=== PATIENT | female | born 1935 | race Caucasian/White ===

== ENCOUNTER → 2019-04-13 11:48 | Outpatient (CLI) | payer OTHER, SELFPAY ==
--- NOTE | 2019-04-13 12:34 | DI.CT.S_ITS ---
PROCEDURE: CT ABDOMEN PELVIS W CON INDICATIONS: LEFT SIDED ABDOMINAL PAIN TECHNIQUE: After the administration of oral and intravenous contrast, 5 mm thick sections acquired from the diaphragms to the symphysis. 5 mm thick coronal and sagittal reformats were performed. For radiation dose reduction, the following was used: automated exposure control, adjustment of mA and/or kV according to patient size. COMPARISON: None. FINDINGS: Image quality: Excellent. ABDOMEN: Lung bases: 13 mm subpleural nodule within the right lower lobe posteriorly. Lung bases are otherwise clear. Heart size is normal. Solid organs: Liver is normal in size and enhancement. Gallbladder demonstrates multiple calculi within its lumen. Biliary system is non-dilated. Pancreas enhances normally. Spleen is normal in size and enhancement. No adrenal nodules. Kidneys are normal in size and enhancement, without hydronephrosis. Left parapelvic renal cysts are present. Peritoneum and bowel: Stomach, small bowel, and colon loops are normal in caliber and wall thickness. Diverticulosis of the sigmoid colon is present. No evidence of acute diverticulitis. Appendix not seen. No evidence of appendicitis. No free fluid or air. Nodes and vessels: No retroperitoneal or mesenteric adenopathy. Aorta and inferior vena cava are normal in caliber. There is a peripherally calcified 8mm focus at the splenic hilum. Miscellaneous: No ventral hernias. PELVIS: Genitourinary: Bladder wall thickness is normal. Miscellaneous: No inguinal hernias or adenopathy. Bones: No suspicious bony lesions. No vertebral body compression fractures. IMPRESSION: 1. Cholelithiasis. 2. Splenic artery aneurysm. 3. Right lung base nodule; followup is recommended as below. 4. Appendix not seen. No evidence of appendicitis. Fleischner Society criteria for SOLID lung nodule followup. Nodule size (mm)Low-risk patientHigh-risk patient<6 (single or multiple)No routine followup.Optional CT at 12 months. 6-8 (single or multiple)CT at 6-[address] at 18-24 mo.CT at 6-12 months, then CT at 18-24 months. >8 (single)CT, PET-CT, or biopsy at 3 months. Same as for low-risk pts. >8 (multiple)CT at 3-6 months, then optional CT at 18-24 mo.CT at 3-6 months, then CT at 18-24 months. Recommendations do not apply to lung cancer screening, patients with immunosuppression, or patients with known primary cancer. Dictated by: Christopher Coleman M.D. on 04/13/2019 at 13:33 Approved by: Christopher Coleman M.D. on 04/13/2019 at 13:36
== END ==
PROVIDERS: PCP Family Medicine; Visit Provider Family Medicine
DX: R10.9 Unspecified abdominal pain (principal); K80.20 Calculus of gallbladder without cholecystitis without obstruction; I72.8 Aneurysm of other specified arteries; R91.1 Solitary pulmonary nodule; N28.1 Cyst of kidney, acquired
CPT/HCPCS: 74177; Q9967

== ENCOUNTER → 2019-05-04 12:22 | Outpatient (CLI) | payer OTHER, SELFPAY | PROVIDERS: PCP Family Medicine; Visit Provider Family Medicine | DX: M85.851 Other specified disorders of bone density and structure, right thigh (principal); Z78.0 Asymptomatic menopausal state; Z85.3 Personal history of malignant neoplasm of breast | CPT/HCPCS: 77080 ==

== ENCOUNTER 2019-05-19 12:16 | Observation (INO) | payer OTHER, SELFPAY ==
[2019-05-06 12:11] VITALS: BMI 24.7
[2019-05-19] VITALS (17 sets, daily range): BP systolic 84–162; BP diastolic 52–92; PULSE 43–103; RESP 12–22; TEMP 33–37.1; O2SAT 93–99; BMI 23.8
--- NOTE | 2019-05-19 | DI.RAD.S_ITS ---
PROCEDURE: XR CHOLANGIOGRAM OPERATIVE INDICATIONS: LAP LORETTA COMPARISON: [facility], CT, CT ABDOMEN PELVIS W CON, 04/13/2019, 12:40. FINDINGS: Biliary ducts: The surgeon injected contrast into the biliary ducts after cannulation of the cystic duct stump. Visualized intra- and extrahepatic bile ducts are normal in caliber, without strictures. No intraluminal filling defects to suggest retained ductal stones or sludge. No evidence for iatrogenic ductal injury. Duodenum: Contrast flows promptly through the sphincter of Oddi into the duodenum, which appears normal in caliber. IMPRESSION: Normal operative cholangiogram. Dictated by: Noam ENCINAS Interpreted: Derrick Wilson MD on 05/19/2019 at 17:07 Approved by: Derrick Wilson M.D. on 05/20/2019 at 9:03
--- NOTE | 2019-05-19 | PATH_ITS ---
[facility] Accession Number: [id number] . 01 Material submitted: . gallbladder - GALLBLADDER . 02 Diagnosis: Gallbladder: Cholelithiasis with associated mild chronic cholecystitis. MRV/05/23/2019 . 02 Electronically signed: . Ji Rob MD, Pathologist NPI- [id number] . 01 Gross description: . Received in formalin, labeled with the patient's name and gallbladder, is a 7.5 x 3.4 x 3.3 cm intact green-brown gallbladder. The serosa is smooth with a roughened liver bed surface. Opening the specimen reveals a normal appearing wall, 0.2 cm in average thickness. The mucosa is green-brown and velvety and green-brown bile is present. Approximately 15 smooth black gallstones are present ranging from 0.4 to 0.9 cm in greatest dimension. On gallstone is lodged within the cystic duct. Hybrid Car Mechanic sections of gallbladder neck, body and fundus, and cystic duct margin are submitted in one cassette. (JULEE:[id number]) /MRV . 02 Pathologist provided ICD-10: K80.64 . 02 CPT . 595654 Performed at: 01 [facility] [address] [facility], [place], [place] [id number] MD Rojelio Senior MD Phone: [phone] Performed at: 02 [facility] [address] [place], [place] [id number] MD Alyse Williamson MD Phone: [phone]
[2019-05-19] MEDS: LACTATED RINGERS 1,000 ML 42 ML IV (12:58)
--- NOTE | 2019-05-19 14:08 | PM.PREOP ---
Pre-operative Note Interval Note History & Physical reviewed/Exam performed by Physician: Yes Changes to H&P: No H&P completed within 30 days and has changed as indicated here:: Please see note from 05/02 for H&P
--- NOTE | 2019-05-19 14:13 | PM.OP.1 ---
Operative Date/Time/Diagnoses Date of procedure: 05/19/19 Time of procedure: 14:00 Pre-op diagnosis: Hodgkin's lymphoma Post-op diagnosis: same Procedure & Clinicians Procedure: Attempt at Port-A-Cath placement. Unable to place due to large obstructing mass in the chest most likely lymphoma involved lymph nodes Same procedure as scheduled: Yes Indications: Need for IV access for chemotherapy Surgeon: Raffi Castillo Click Yes if Unassisted: Yes Anesthesia Type: General Operative Notes Findings: Unable to pass catheter and aspirate it and use it as a functional central line access point Closure Type: primary Specimen(s): none sent Prosthetic devices, grafts, tissues, transplants, or devices: None Estimated Blood Loss (mL): 20 Procedure in detail: The patient was placed supine on the operating room table and underwent general LMA anesthesia. Roll was placed between his shoulders and he was prepped and draped in the usual fashion. Has a large amount of lymphadenopathy burden in the left neck and axilla presumptively extending along the thoracic outlet as well so the right side was chosen for access. Small incision was made paralleling the clavicle and carried down in the subcu. Needle was inserted on 1st attempt into the subclavian vein after placing the patient in Trendelenburg. A guidewire was passed needle removed. The guidewire clearly went into the area of the superior vena cava but would not pass beyond. I created a pocket inferior to the incision and tapered my catheter to appropriate length. I then inserted the dilator and introducer over the guidewire under fluoroscopic visualization. A reached a point where there was resistance in the upper 3rd of the superior vena cava and I did not push beyond this point. I removed the dilator and left the introducer in place. The catheter was passed but it would only go so far. It appeared there was a kink in the introducer. I began to peel the introducer way while of observing under fluoroscopy and attempting to push the catheter into the introducer. However both the catheter in introducer appeared to be backing out and I was not able to pass the catheter. I stopped before I was out of the vein. I removed the catheter and reinserted the dilator under fluoroscopy and straightened out the introducer. I ten passed the guidewire through the dilator and removed the dilator leaving the guidewire in place. I was able to pass it to the same level as my initial insertion of the guidewire.
[2019-05-19] MEDS: CEFAZOLIN 2 GM/100 ML FROZ.PIGGY IV (14:34)
--- NOTE | 2019-05-19 14:58 | SUR.OPER ---
Supine on padded OR bed, head on pillow, safety belt at thigh, left arm padded and tucked at side. Right arm secured on padded arm oard <90 degrees abduction. Legs uncrossed. Padded footboard in place. Tape over blanket to secure lower legs.
[2019-05-19] MEDS: BUPIVACAINE 0.5% (PF) VIAL 30 ML INJ (15:10)
[2019-05-19] MEDS: IOPAMIDOL 50 ML VIAL INJ (15:11)
[2019-05-19] MEDS: RACEPINEPHRINE 0.5 ML NEB INH (16:20)
--- NOTE | 2019-05-19 16:21 | SUR.PHASEI ---
PT HAVING INSPIRATORY STRIDER, LUNG SOUNDS WITH GOOD AIR EXCHANGE HEARD, OCC WHEESING NOTED IN RIGHT UPPER LOBE, DR RICK REMAINS AT BEDSIDE, RESP TX BEING GIVEN
--- NOTE | 2019-05-19 16:26 | P.OP_ITS ---
Operative Date/Time/Diagnoses Date of procedure: 05/19/19 Time of procedure: 16:02 Pre-op diagnosis: Cholelithiasis chronic cholecystitis Post-op diagnosis: same (Stones within the cystic duct) Procedure & Clinicians Procedure: Laparoscopic cholecystectomy with intraoperative cholangiogram Same procedure as scheduled: Yes Indications: Symptomatic gallbladder disease Surgeon: Raffi Castillo Click Yes if Unassisted: Yes Anesthesia Type: General Operative Notes Findings: Gallbladder with stones. Three small stones in the cystic duct. Normal cholangiogram. Closure Type: primary Specimen(s): other (Gallbladder) Prosthetic devices, grafts, tissues, transplants, or devices: None Estimated Blood Loss (mL): 5 Blood products transfused: none Procedure in detail: The patient was placed supine on the operating room table and underwent general endotracheal anesthesia. The patient was prepped and draped in the usual fashion. Local anesthetic was infiltrated near the umbilicus and curvilinear incision made and carried down through fascia into the peritoneal cavity. Stay sutures of 0 Vicryl were placed in the fascia. A 12 mm port was placed. The abdomen was insufflated. The patient was repositioned. Local anesthetic was infiltrated in 3 areas under the right costal margin and 3 small incisions made followed by placing 3 5 mm ports under direct laparoscopic camera vision internally. The gallbladder was grasped and elevated. Dissection was begun near its end. The tissues were opened at the into the gallbladder using blunt dissection. There were 3 structures dissected out 1 of which a ppeared to be the duct. As there was very little intraperitoneal fat it was easy to see the juncture with the common bile duct which looked generous in size. The cystic duct also was generous in size. I decided to perform a cholangiogram. A clip was placed at the junction of the duct and gallbladder and a small machelle was intentionally made in the cystic duct. I milked fluid from the common duct and cystic duct back through this opening and 3 very small black stones egress from the cystic duct. A cholangiogram catheter was inserted and a cholangiogram performed that showed no filling defects and a normal duct with free flow into the duodenum. The cholangiocatheter was removed and 3 clips were placed on the cystic duct and it was divided leaving those 3 the patient. The other structures which I felt were vascular had 3 clips placed across them and they were divided leaving 2 in the patient on each structure.. The gallbladder was then dissected from its bed in the liver using cautery. Meticulous with hemostasis was achieved as the dissection progressed. It was detached and removed through the umbilical port. the right upper quadrant irrigated suctioned free of fluid. There was no ongoing bleeding. There was no leakage of bile. The ports were all removed. The port sites were all irrigated. The stay sutures at the umbilicus were elevated. A 2 0 PDS suture was placed between them. The Vicryl and PDS sutures were then tied. The skin in all areas was closed with interrupted 4 0 Vicryl subcuticular stitches. Steri-Strips and Mastisol were applied. Band-Aids were placed and the patient was awakened, extubated and taken to the recovery area in good condition. Complications: none Condition: stable Disposition: PACU Plan for aftercare: Initially I would plan to send the patient home but she developed stridor that appeared to be centered in her upper respiratory tract. With the liver endoscope it was noted that the cord structures moved normally but there was some edema in the supraglottic area. There was some mild asymmetry of the arytenoids. Because of this in the stridor and relative hypoxia on supplemental oxygen I decided to keep this 84-year-old overnight for observation in the ICU. The patient received a breathing treatment with the albuterol, racemic epinephrine, and also received 25 mg of Benadryl IV. There was some improvement in her respiratory status but I had decided better safety and sorry and keep her overnight. This was discussed with her son who was in agreement, and the patient.
[2019-05-19] MEDS: diphenhydrAMINE 50 MG/ML VIAL 25 MG IV (16:30)
--- NOTE | 2019-05-19 16:37 | SUR.PHASEI ---
PT CONTINUED TO HAVE INSPIRATORY STRIDER, ANESTHESIA AT BEDSIDE, RESP THERAPY CALLED TO BEDSIDE, DR RICK MEDICATED PT AND EXAMINED PTS THROAT AND VOCAL CORDS BY SCOPE. DR GIRON IS TO SEE PT AND AWARE. WILL CONTINUE TO OBSERVE AND MONITOR, WILL ADMIT PT TO ICU.
--- NOTE | 2019-05-19 16:50 | SUR.PHASEI ---
PT RESTING QUIETLY, LUNG SOUNDS CLEAR, NO STRIDER NOTED, ON 2LNC PULSE OX IS 98, RR 14-18
--- NOTE | 2019-05-19 17:11 | SUR.PHASEI ---
PT TO ICU, HAND OFF OF CARE AND REPORT TO PARRISH COBB, IV PATENT, ABDOMINAL DRESSINGS REMAIN DRY AND INTACT, PT DENIES ANY PAIN OR NAUSEA.
--- NOTE | 2019-05-19 18:04 | PC.NURSE ---
2746 - Patient brought to room 102 from PACU. Transferred from stretcher to bed. Alert and oriented, but sleepy. Denies pain at this time. Denies difficulty breathing. No stridor noted at this time, but patient's voice is hoarse when speaking. Oriented to room and call light, call light within reach. Continuous pulse ox on.
[2019-05-19] MEDS: GABAPENTIN 300 MG CAPSULE PO (20:29)
[2019-05-19] MEDS: ALBUTEROL 2.5 MG/3 ML NEB (ADULT) INH (20:29)
[2019-05-19] MEDS: ENOXAPARIN 40 MG/0.4 ML SYRINGE SUBCUT (21:29)
[2019-05-20 00:13] VITALS: BP 120/54; PULSE 57; RESP 16; TEMP 36.9; O2SAT 97
[2019-05-20] MEDS: LACTATED RINGERS 1,000 ML 80 ML IV (01:22)
[2019-05-20] MEDS: GABAPENTIN 300 MG CAPSULE PO (09:08)
[2019-05-20] MEDS: hydroCHLOROthiazide 25 MG TABLET PO (09:08)
[2019-05-20] MEDS: HYDROCODONE/ACET 5/325 TABLET 1 TAB PO ×2 (09:38→12:55)
--- NOTE | 2019-05-20 12:22 | CM.DANOTE ---
Discharge Planning/Care Management DCP: assessment: case received, discussed in Team Rounds and d/c to home order noted now from Dr. Castillo. Met with pt and then with her son when he arrived. Introduced self and role. Pt is an 84 year old female who admitted yesterday for a scheduled Lap Priyanka. She developed some problems post op an so was observed overnight in ICU setting. Pt is found sitting up, eating lunch and she says she is feeling good and ready for the d/c today. She lives on [place] with family, her son Harinder is here to take her home. Assisted RN Aamir to complete the priority board pass [place] the [address] [place]. BARB Santiago at main nurses station/acute care floor is faxing this form now. Pt copy is given to Harinder. P: home today as stated. CM Discharge Assessment Start: 05/20/19 12:21 Freq: Status: Active Protocol: Document 05/20/19 12:21 ITV (Rec: 05/20/19 12:22 ITV [id number]) Discharge Planning Assessment Advance Directives? No History Provided By Patient Family Member Medical Record Household Members family children Review Status In Process Pre-Anesthesia Assessment Start: 05/06/19 12:11 Freq: Status: Complete Protocol: Document 05/06/19 12:11 CAB (Rec: 05/06/19 12:32 CAB [id number]) Pre-Anesthesia Assessment Patient Information Reviewed Via Chart Review Primary Care Provider Jhon Capps Seen Specialist in Last 12 Months Yes Specialist Seen General surgeon Primary Language Taiwanese Grab Jack Man Required No Height 166.37 cm Weight 68.492 kg Body Mass Index (BMI) 24.7 Hearing Ability Normal Visual Assist Glasses Dentition Type Teeth, Natural Present Barriers to Learning None Hx Anesthesia Reactions No Hx Family Anesthesia Reaction No Hx Malignant Hyperthermia No Hx Blood Transfusions No Anesthesia Review Requested No Gravity Meter Observer No alcohol intake never Smoking Status Former smoker how long ago did patient quit smoking Quit 1959' Substance Use Type does not use Pain Present Pain Reported Patient is completely paralyzed or No completely immobile Mental Status Oriented to own ability Is patient on oxygen? No Does patient have LY/SOB No Hx Sleep Apnea No Currently Taking a Beta Raul No Hx Chest Pain No Hx SOB No Hx Syncope or Dizziness No Anti-Coagulant Therapy No Has a Ethnographic Materials Conservator No Cardiac Testing No Hx Pacemaker/ICD No Pacemaker Rep Required? No Cardiac Clearance Received Not Applicable dysphagia No Urinary Catheter Present No Hx Urinary Self Catheterization No Diabetes No Patient No Lactating No Comment Lives With family children Patient Discharge Plan Description Return Home
--- NOTE | 2019-05-20 13:11 | CM.DANOTE ---
Discharged in WC, awake, alert, oriented. Prescribed medication given for ongoing abdominal soreness. VSS. All personal effects with pt. Discussed discharge instructions and medications.
--- NOTE | 2019-05-20 17:09 | PM.DS.1 ---
History of Present Illness Date Patient Seen: 05/20/19 Time Patient Seen: 09:00 Chief complaint: [id number] LAP LORETTA Narrative: The patient is a woman who was brought in for observation due to postoperative stridor and hypoxia. She had undergone a laparoscopic cholecystectomy with intraoperative cholangiogram which was uncomplicated. In the recovery room she develop stridor and had visualization of her cord structures. There was some edema above the cords and it was decided to keep her in for observation overnight. Discharge Providers Date of admission: 05/19/19 12:16 Discharge Date: 05/20/19 Primary care physician: Jhon Capps Consults: 05/19/19 17:27 Consult to Discharge Planning Routine Comment: 05/19/19 18:03 Consult to Pastoral Services Routine Comment: roman catholic Discharge provider: Raffi Castillo MD Summary Discharge Diagnosis: Chronic cholecystitis with cholelithiasis. 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 Hospital Course: The patient had a laparoscopic cholecystectomy and intraoperative cholangiogram. Her stridor with hypoxia in the recovery room resulted in her being kept for observation. In the recovery room she received abuse her all nebulizer treatment,racemic epinephrine treatment, and IV Benadryl. The patient lives on [facility] and does not have ready access to emergency medical care. Over the night her condition improved. She had wheezing also in the recovery room the persisted but this disappeared over night along with the stridor and hypoxia. Status at Discharge Cognitive/behavioral status at discharge: oriented Functional status at discharge: independent ambulation Overall status at discharge: patient is progressing back to baseline Exam Vital Signs (past 8 hours): Oxygen Delivery Method Room Air Oxygen Flow Rate 2 Narrative Exam Narrative: Operative no apparent distress. Lungs are clear to auscultation without wheezing rales or rhonchi. No stridor. Oxygenating well on room air. Abdomen is soft nontender without masses. Her dressings are intact and dry without bleeding. Objective Labs Labs: Laboratory Results - last 24 hr 05/19/19 18:15 Nasal Screen MRSA (PCR) Negative for mrsa Discharge Plan Discharge Plan Patient Disposition: Home Discharge comment: Your operation went well. You may remove the Band-Aids tomorrow and shower. No lifting or straining for about 4 weeks. Discharge Med Rec/Prescriptions Prescriptions: New hydrocodone-acetaminophen [[place]] 5-325 mg tablet 1 tab PO Q4H PRN (Reason: painful procedure) Qty: 14 RF: 0 Continued atorvastatin [Lipitor] 20 mg tablet 20 mg PO DAILY RF: 0 hydrochlorothiazide 25 mg tablet 25 mg PO DAILY RF: 0 ibuprofen [Advil] 200 mg Tablet 200 mg PO QID PRN (Reason: Pain) RF: 0 albuterol sulfate 90 mcg/actuation Hfa Aerosol Inhaler 1 puff INHALATION Q4-6H PRN (Reason: Sinus Symptoms) RF: 0 coenzyme Q10 [CoQ-10] 30 mg Capsule 30 mg PO DAILY RF: 0 Follow up/Referrals: Jhon Capps [Primary Care Provider] - Raffi Castillo MD [Physician] - As previously scheduled (If you need to reach a doctor after hours call our office and hold through the entire message. At the end you will be connected with our page pharmaceutical plant operator) Provider Discharge Instructions Diet: Diet as Tolerated Activity: Do not drive or operate machinery while taking narcotics for pain or while in pain. Skin/Wound/Dressing Care Report to your healthcare provider any signs of infection, such as:: increased pain, unusual drainage and unusual redness Dressing: Removed Band-Aids in 1 day and shower. Leave white tape under the Band-Aids fall off on its own. Do not put under water for at least 2 weeks. Water can run over the incisions however. Visit Report/Discharge Packet Instructions: DI for Cholecystectomy, DI for Laparoscopy, [facility]: Wound Care Stand Alone Forms: Surgery Discharge Discharge Data Primary Care Provider: Jhon Capps Attending Provider: Raffi Castillo Admit Date/Time: 05/19/19 12:16 Discharges patient from system. Discharge Date/Time: 05/20/19 13:15 Quality VTE Deep Vein Thrombosis/Pulmonary Embolism Present on Admission: No
--- NOTE | 2019-05-20 17:16 | P.DS_ITS ---
History of Present Illness Date Patient Seen: 05/20/19 Time Patient Seen: 09:00 Chief complaint: [id number] LAP LORETTA Narrative: The patient is a woman who was brought in for observation due to postoperative stridor and hypoxia. She had undergone a laparoscopic cholecystectomy with intraoperative cholangiogram which was uncomplicated. In the recovery room she develop stridor and had visualization of her cord structures. There was some edema above the cords and it was decided to keep her in for observation overnight. Discharge Providers Date of admission: 05/19/19 12:16 Discharge Date: 05/20/19 Primary care physician: Jhon Capps Consults: 05/19/19 17:27 Consult to Discharge Planning Routine Comment: 05/19/19 18:03 Consult to Pastoral Services Routine Comment: episcopal Discharge provider: Raffi Castillo MD Summary Discharge Diagnosis: Chronic cholecystitis with cholelithiasis. 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 Hospital Course: The patient had a laparoscopic cholecystectomy and intraoperative cholangiogram. Her stridor with hypoxia in the recovery room resulted in her being kept for observation. In the recovery room she received abuse her all nebulizer treatment,racemic epinephrine treatment, and IV Benadryl. The patient lives on [facility] and does not have ready access to emergency medical care. Over the night her condition improved. She had wheezing also in the recovery room the persisted but this disappeared over night along with the stridor and hypoxia. Status at Discharge Cognitive/behavioral status at discharge: oriented Functional status at discharge: independent ambulation Overall status at discharge: patient is progressing back to baseline Exam Vital Signs (past 8 hours): Oxygen Delivery Method Room Air Oxygen Flow Rate 2 Narrative Exam Narrative: Operative no apparent distress. Lungs are clear to auscultation without wheezing rales or rhonchi. No stridor. Oxygenating well on room air. Abdomen is soft nontender without masses. Her dressings are intact and dry without bleeding. Objective Labs Labs: Laboratory Results - last 24 hr 05/19/19 18:15 Nasal Screen MRSA (PCR) Negative for mrsa Discharge Plan Discharge Plan Patient Disposition: Home Discharge comment: Your operation went well. You may remove the Band-Aids tomorrow and shower. No lifting or straining for about 4 weeks. Discharge Med Rec/Prescriptions Prescriptions: New hydrocodone-acetaminophen [[place]] 5-325 mg tablet 1 tab PO Q4H PRN (Reason: painful procedure) Qty: 14 RF: 0 Continued atorvastatin [Lipitor] 20 mg tablet 20 mg PO DAILY RF: 0 hydrochlorothiazide 25 mg tablet 25 mg PO DAILY RF: 0 ibuprofen [Advil] 200 mg Tablet 200 mg PO QID PRN (Reason: Pain) RF: 0 albuterol sulfate 90 mcg/actuation Hfa Aerosol Inhaler 1 puff INHALATION Q4-6H PRN (Reason: Sinus Symptoms) RF: 0 coenzyme Q10 [CoQ-10] 30 mg Capsule 30 mg PO DAILY RF: 0 Follow up/Referrals: Jhon Capps [Primary Care Provider] - Raffi Castillo MD [Physician] - As previously scheduled (If you need to reach a doctor after hours call our office and hold through the entire message. At the end you will be connected with our page tucking machine operator) Provider Discharge Instructions Diet: Diet as Tolerated Activity: Do not drive or operate machinery while taking narcotics for pain or while in pain. Skin/Wound/Dressing Care Report to your healthcare provider any signs of infection, such as:: increased pain, unusual drainage and unusual redness Dressing: Removed Band-Aids in 1 day and shower. Leave white tape under the Band-Aids fall off on its own. Do not put under water for at least 2 weeks. Water can run over the incisions however. Visit Report/Discharge Packet Instructions: DI for Cholecystectomy, DI for Laparoscopy, [facility]: Wound Care Stand Alone Forms: Surgery Discharge Discharge Data Primary Care Provider: Jhon Capps Attending Provider: Raffi Castillo Admit Date/Time: 05/19/19 12:16 Discharges patient from system. Discharge Date/Time: 05/20/19 13:15 Quality VTE Deep Vein Thrombosis/Pulmonary Embolism Present on Admission: No
== END 2019-05-20 13:15 | disposition home or self-care (01) ==
LOC: OR 12:17 → ICU 05-20 09:57
PROVIDERS: Admitting Provider Specialist; PCP Family Medicine; Visit Provider Specialist
PROC: 0FT44ZZ Resection of Gallbladder, Percutaneous Endoscopic Approach (ICD-10-PCS; CPT 47562; principal; 2019-05-19 13:15)
DX: K80.10 Calculus of gallbladder with chronic cholecystitis without obstruction (principal); R10.11 Right upper quadrant pain; I10 Essential (primary) hypertension; E78.5 Hyperlipidemia, unspecified; F17.210 Nicotine dependence, cigarettes, uncomplicated
CPT/HCPCS: 47563; 74300; 87797; 94640; G0378; J0690; J1100; J1170; J1200; J1650; J1885; J2405; J2704; J3010; J7613

== ENCOUNTER → 2019-07-27 11:33 | Outpatient (CLI) | payer OTHER, SELFPAY ==
[2019-05-19 17:06] VITALS: BMI 23.8
[2019-07-27 12:16] LABS: BUN Creatinine Ratio 21.3 (6-22); Blood Urea Nitrogen 17 mg/dL (7-17); Estimated Glomerular Filt Rate > 60.0 mL/min (>60)
--- NOTE | 2019-07-27 13:04 | DI.CT.S_ITS ---
PROCEDURE: CT CHEST W CON INDICATIONS: Right lower lung nodule TECHNIQUE: After the administration of intravenous contrast, 5 mm thick sections acquired from the pulmonary apices to the posterior costophrenic angles. 1 mm axial lung, 5 mm thick coronal and sagittal reformats and 7 mm axial MIP were acquired. For radiation dose reduction, the following was used: automated exposure control, adjustment of mA and/or kV according to patient size. COMPARISON: [facility], CT, CT ABDOMEN PELVIS W CON, 04/13/2019, 12:40. FINDINGS: Image quality: Excellent. Lungs and pleura: There is biapical scarring. Dependent atelectasis in posterior aspect of bilateral lung jimenez are seen. Pleural-based nodular thickening involving posterior aspect of right lower lobe measures 13 mm in width is again seen and unchanged from prior study. Bibasilar scattered scarring/atelectasis is seen. 3 mm calcified granuloma in lateral aspect of left upper lobe is seen series 2 image 115. No other discrete pulmonary nodule or mass is seen. No pleural effusions or pneumothorax. Central and peripheral airways are patent and normal in caliber. Mediastinum: Heart size is normal. No pericardial effusion. No mediastinal or hilar adenopathy by size criteria. Moderate amount of atherosclerotic calcifications are noted in coronary vessels and thoracic aorta.. Thoracic aorta and central pulmonary arteries are normal in size. There is no thoracic aortic aneurysm or dissection. No filling defect is seen the main pulmonary trunk and bilateral primary to tertiary pulmonary artery branches. Esophagus is normal in caliber. There is a small hiatal hernia. Bones and chest wall: No suspicious bony lesions. No vertebral body compression fractures. No axillary or supraclavicular adenopathy by size criteria. Thyroid gland is within normal limits. Abdomen: Visualized upper abdominal solid organs appear normal. Upper abdominal bowel loops are normal in caliber. Patient is status post cholecystectomy. 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 No evidence of pulmonary emboli. No thoracic aortic aneurysm or dissection. Stable pleural fluid a calcified 8 mm splenic artery aneurysm. 2. Bibasilar scarring. Dependent atelectasis in posterior aspect of bilateral lung jimenez. Scarring/atelectasis at bilateral lung bases. Stable appearing focal nodular thickening involving posterior pleura of the right lower lobe. Tiny calcified granuloma in left upper lobe. Airway is patent. No pleural effusion or pneumothorax. 3. No mediastinal or hilar lymphadenopathy. Mild to moderate atherosclerotic disease. Dictated by: Ehsan Mckeon M.D. on 07/27/2019 at 16:23 Approved by: Ehsan Mckeon M.D. on 07/27/2019 at 16:29
== END ==
PROVIDERS: PCP Family Medicine; Visit Provider Specialist
DX: R91.1 Solitary pulmonary nodule (principal); J98.11 Atelectasis; I72.8 Aneurysm of other specified arteries; I25.10 Atherosclerotic heart disease of native coronary artery without angina pectoris; I70.0 Atherosclerosis of aorta; K44.9 Diaphragmatic hernia without obstruction or gangrene; Z90.49 Acquired absence of other specified parts of digestive tract
CPT/HCPCS: 36415; 71260; 82565; 84520; Q9967

== ENCOUNTER → 2021-03-25 10:57 | Outpatient (CLI) | payer MEDICARE, SELFPAY ==
[2019-05-19 17:06] VITALS: BMI 23.8
[2021-03-25 20:05] LABS: BUN Creatinine Ratio 19.7 (6-22); Blood Urea Nitrogen 15 mg/dL (7-17); Calcium 10.4 mg/dL (8.4-10.2); Carbon Dioxide 32 mmol/L (22-32); Chloride 101 mmol/L (98-107); Cholesterol 195 mg/dL (140-199); Estimated Glomerular Filt Rate > 60.0 mL/min (>60); Glucose 98 mg/dL (80-110); HDL Cholesterol 60 mg/dL (40-60); HEMOLYSIS < 15 (0-50); LDL Cholesterol Calculated 106 mg/dL (<100); Sodium 140 mmol/L (137-145); Triglycerides 145 mg/dL (35-150)
== END ==
PROVIDERS: PCP Family Medicine; Visit Provider Family Medicine
DX: E78.5 Hyperlipidemia, unspecified (principal); I10 Essential (primary) hypertension
CPT/HCPCS: 80048; 80061

== ENCOUNTER → 2022-02-12 11:06 | Outpatient (CLI) | payer MEDICARE, SELFPAY ==
[2019-05-19 17:06] VITALS: BMI 23.8
--- NOTE | 2022-02-12 11:55 | DI.CT.S_ITS ---
PROCEDURE: CT CHEST ABD PEL W CON INDICATIONS: Aneurysm of carotid artery TECHNIQUE: After the administration of oral and intravenous contrast, axial sections acquired from the supraclavicular neck to the pubic symphysis. Coronal and sagittal reformats were performed. For radiation dose reduction, the following was used: automated exposure control, adjustment of mA and/or kV according to patient size. COMPARISON:[facility], CT, CT CHEST W CON, 07/27/2019, 13:03. FINDINGS: Image quality: Excellent. CHEST: Lower Neck: No enlarged lymph nodes. Thyroid: 5.8 mm hypoattenuating lesion in the right thyroid, which may reflect a nodule. Axillae: No enlarged lymph nodes. Chest Wall: Unremarkable. Lungs and Airways: Biapical pleural thickening/scarring. Density in the pleural aspect of the right lower lobe, which may reflect round atelectasis. Right upper lobe nodule: 4 mm (3-96) Right middle lobe nodule: 3.7 mm (3-163). Left upper lobe nodule: 2.5 mm (3-122) Left lower lobe nodule: Spiculated, 5.5 mm (3-149) Pleura: No pneumothorax or pleural effusions. Heart: Heart size is normal. No pericardial effusion. Thoracic Vessels: The aorta and pulmonary arteries demonstrate normal size. Calcified atheromatous change of the aorta. Mediastinum and Diya: No enlarged lymph nodes. Esophagus: No wall thickening. Trace hiatal hernia. ABDOMEN: Liver: Unremarkable. Gallbladder: Cholecystectomy. Biliary ducts: Mild intrahepatic biliary duct dilatation. Pancreas: Unremarkable. Spleen: Unremarkable. Adrenal Glands: Unremarkable. Kidneys and Ureters: Unremarkable. Left parapelvic hypoattenuating lesions, compatible with cysts. Stomach and Bowel: No evidence of intestinal obstruction or inflammatory change. Sigmoid diverticulosis. The appendix is not well delineated. Peritoneum: No abnormal intraperitoneal fluid. No free air. Ventral Wall: No hernia. Abdominal Nodes: No retroperitoneal or mesenteric adenopathy by size criteria. Vessels: Aorta and inferior vena cava are normal in size. 7.4 mm splenic aneurysm (5-35). PELVIS: Pelvic Organs: Unremarkable. Bladder: Unremarkable. Pelvic Nodes: No enlarged lymph nodes. Miscellaneous: No inguinal hernias are seen. Bones: Multifocal degenerative change. IMPRESSION: 1. Stable spiculated nodule in the left lower lobe, measuring 5.5 mm, unchanged. Additional pulmonary nodules are seen, measuring less than [address] surveillance based on the patient's risk factors. 2. Stable splenic artery aneurysm. 3. 5.8 mm hypoattenuating lesion in right lobe of the thyroid, which may reflect a nodule. Consider correlation with thyroid function tests and ultrasound as clinically warranted. Dictated by: Marco Meléndez M.D. on 02/12/2022 at 13:09 Approved by: Marco Meléndez M.D. on 02/12/2022 at 13:31
== END ==
PROVIDERS: PCP Family Medicine; Referring Provider Family Medicine; Visit Provider Family Medicine
DX: I72.0 Aneurysm of carotid artery (principal); I72.8 Aneurysm of other specified arteries; R91.8 Other nonspecific abnormal finding of lung field; E07.9 Disorder of thyroid, unspecified
CPT/HCPCS: 71260; 74177

== ENCOUNTER → 2022-03-27 12:37 | Outpatient (CLI) | payer MEDICARE, SELFPAY ==
[2019-05-19 17:06] VITALS: BMI 23.8
--- NOTE | 2022-03-27 | DI.US.S_ITS ---
PROCEDURE: US THYROID INDICATIONS: NODULE ON CT TECHNIQUE: Real-time scanning was performed of the thyroid gland, with image documentation. COMPARISON: None. FINDINGS: Right: Thyroid lobe measures 3.2 x 1.2 x 1.5 cm, and is homogeneous in echotexture. Left: Thyroid lobe measures 3.3 x 1.1 x 0.9 cm, and is homogenous in echotexture. Isthmus: 2.1 mm thick. Nodule number: 1 Location: Right mid Size: 1.0 x 0.6 x 1.0 cm. Composition: Mixed cystic-solid Echogenicity: Hypoechoic Shape: wider than tall. Margins: Smooth Echogenic foci: Non Total points: 3 ACR TI-RADS category: Mildly suspicious IMPRESSION: Mildly suspicious thyroid nodule. Based on criteria below no additional follow-up is recommended. ACR TI-RADS definitions and recommendations: TI-RADS 1 (benign): 0 points. FNA not needed. TI-RADS 2 (not suspicious): 2 points. FNA not needed. TI-RADS 3 (mildly suspicious): 3 points. * FNA if 2.5 cm or larger, follow up if 1.5 cm or larger (at 1, 3, and 5 years). TI-RADS 4 (moderately suspicious): 4-6 points. * FNA if 1.5 cm or larger, follow up if 1 cm or larger (at 1, 2, 3, and 5 years). TI-RADS 5 (highly suspicious): 7 points or more. * FNA if 1 cm or larger, follow up if 0.5 cm or larger (every year for 5 years). Dictated by: Jessy Chandra MD, PhD on 03/27/2022 at 15:57 Approved by: Jessy Chandra MD, PhD on 03/27/2022 at 16:01
== END ==
PROVIDERS: PCP Family Medicine; Referring Provider Family Medicine; Visit Provider Family Medicine
DX: E04.1 Nontoxic single thyroid nodule (principal)
CPT/HCPCS: 76536

== ENCOUNTER → 2022-10-14 16:18 | Outpatient (CLI) | payer MEDICARE, SELFPAY ==
[2019-05-19 17:06] VITALS: BMI 23.8
--- NOTE | 2022-10-14 | DI.US.S_ITS ---
PROCEDURE: US CAROTID DOPPLER BI INDICATIONS: MURMUR/OCCLUSION AND STENOSIS OF CAROTID ARTERY TECHNIQUE: Color and pulse Doppler interrogation was performed of both carotid systems, with image documentation and velocity measurements. COMPARISON: None. FINDINGS: Stenosis calculations are based on SRU (Society of Radiologists in Ultrasound) criteria. Right side: Brachial blood pressure: 181/87 mm Hg. Common carotid artery peak systolic velocity: 133 cm/sec. Internal carotid artery peak systolic velocity: 123 cm/sec. Internal carotid artery end diastolic velocity: 28 cm/sec. External carotid artery peak systolic velocity: 130 cm/sec. ICA/CCA peak systolic ratio: 0.9. Guerin scale imaging description: Mild atheromatous plaque is present in the proximal internal carotid artery. Percent internal carotid artery stenosis: Less than 50% stenosis. Vertebral artery: Flow direction is antegrade. Left side: Brachial blood pressure: Not obtained. Common carotid artery peak systolic velocity: 117 cm/sec. Internal carotid artery peak systolic velocity: 134 cm/sec. Internal carotid artery end diastolic velocity: 32 cm/sec. External carotid artery peak systolic velocity: 110 cm/sec. ICA/CCA peak systolic ratio: 1.1 . Guerin scale imaging description: Atheromatous calcifications are present at the carotid bifurcation. Percent internal carotid artery stenosis: 50-69% stenosis. Vertebral artery: Flow direction is antegrade. IMPRESSION: 1. Less than 50% stenosis of the right internal carotid artery. 2. 50-69% stenosis of the left internal carotid artery. Dictated by: Carla Gilbert M.D. on 10/15/2022 at 8:38 Approved by: Carla Gilbert M.D. on 10/15/2022 at 8:44
== END ==
PROVIDERS: PCP Family Medicine; Referring Provider Family Medicine; Visit Provider Family Medicine
DX: I65.23 Occlusion and stenosis of bilateral carotid arteries (principal); R01.1 Cardiac murmur, unspecified
CPT/HCPCS: 93880

== ENCOUNTER → 2022-10-15 09:06 | Outpatient (CLI) | payer MEDICARE, SELFPAY ==
[2019-05-19 17:06] VITALS: BMI 23.8
--- NOTE | 2022-10-15 | DI.ECHO.S_ITS ---
[facility]---------+ [facility] +---------+ : : [address] : : : : [id number] : : : : Phone: [phone] Echocardiogram Report + + :Name: KATY ORTEZ Study Date: 10/15/2022 Height: 65.5 in: :[facility] ReadingLocation: Weight: 158 lb : : Gender: Female BSA: 1.8 m2 : :: 1935 Age: 87 yrs BP: 134/71 mmHg: :Reason For Study: MURMUR : :Ordering Physician: MERE, : :KAILA Shelby Performed By: Ana Bethea : :Referring: KAILA SEVERINO : + + Interpretation Summary The ejection fraction is estimated to be 60-65%. There is mild aortic regurgitation. There is trace mitral regurgitation. There is trace tricuspid regurgitation. There is no pericardial effusion. Procedure: A two-dimensional transthoracic echocardiogram with color flow and Doppler was performed. The study quality was technically adequate. There is no prior echocardiogram noted for this patient. The patient was in sinus rhythm with heart rates between 62-78 bpm during the exam. Left Ventricle: The left ventricle is normal in size and wall thickness. The ejection fraction is estimated to be 60-65%. Left ventricular wall motion is normal. Right Ventricle: The right ventricle is normal in size and function. Atria: The left atrial size is normal. Right atrial size is normal. There is no Doppler evidence for an interatrial shunt. Mitral Valve: The mitral valve is normal in structure and function. There is trace mitral regurgitation. Aortic Valve: The aortic valve is trileaflet. The aortic valve is slightly calcified. There is no aortic valve stenosis. There is mild aortic regurgitation. Tricuspid Valve: The tricuspid valve is normal in structure and function. There is trace tricuspid regurgitation. Pulmonic Valve: The pulmonic valve is not well seen, but is grossly normal. There is mild pulmonic regurgitation. Great Vessels: The aortic root is normal size. The dimensions of the ascending aorta are normal. The IVC is of normal diameter and collapses greater than 50% with a sniff. This suggests a low right atrial pressure of 3 mm Hg. Pericardium/ Pleura There is no pericardial effusion. There is no pleural effusion. MMode/2D Measurements & Calculations LVIDd: 4.5 cm LVOT diam: 1.9 cm LVIDs: 2.8 cm Ao root diam: 2.9 cm FS: 38.4 % asc Aorta Diam: 2.6 cm IVSd: 0.75 cm Ao Arch Diam (Prox Trans): 2.5 cm LVPWd: 0.71 cm LV lacy. diameter/BSA (cm/m^2): 2.5 LV sys. diameter/BSA (cm/m^2): 1.5 LA A2 area: 19.1 cm2 RA long axis: 4.4 cm LA A4 area: 11.7 cm2 RA area: 11.4 cm2 LA length (vol): 4.4 cm RA vol: 25.2 ml LA vol: 42.5 ml RA : 14.0 ml/m2 LA vol index: 23.6 ml/m2 IVC diam: 0.81 cm RVD1 (basal): 3.2 cm RVD2 (mid): 2.7 cm TAPSE: 2.0 cm Doppler Measurements & Calculations Ao V2 max: 214.4 cm/sec LVOT Max Luis: 108.7 cm/sec Ao V2 mean: 150.4 cm/sec LV V1 max P.0 mmHg Ao max P.4 mmHg LV V1 VTI: 22.0 cm Ao mean P.2 mmHg MALENA(I,D): 1.4 cm2 Ao V2 VTI: 44.6 cm MALENA(V,D): 1.4 cm2 sev ratio: 0.49 MALENA indexed to BSA (cm^2/m^2): 0.78 AI P1/2t: 478.8 msec AI dec slope: 248.1 cm/sec2 MV E max luis: 77.7 cm/sec TR max luis: 236.2 cm/sec MV A max luis: 94.7 cm/sec TR max P.4 mmHg MV E/A: 0.82 PA V2 max: 99.3 cm/sec Med Peak E' Luis: 7.6 cm/sec PA V2 mean: 66.2 cm/sec E/E' med: 10.2 PA mean P.0 mmHg Lat Peak E' Luis: 10.0 cm/sec PA pr(Accel): 32.8 mmHg E/E' lat: 7.8 E/e' average: 9.0 MV dec time: 0.30 sec SV(LVOT): 62.3 ml Reading Physician:02:52 PM
== END ==
PROVIDERS: PCP Family Medicine; Referring Provider Family Medicine; Visit Provider Family Medicine
DX: I35.1 Nonrheumatic aortic (valve) insufficiency (principal); I37.1 Nonrheumatic pulmonary valve insufficiency; I65.29 Occlusion and stenosis of unspecified carotid artery; R01.1 Cardiac murmur, unspecified
CPT/HCPCS: 93306

== ENCOUNTER → 2024-01-20 11:09 | Outpatient (CLI) | payer MEDICARE, SELFPAY ==
[2019-05-19 17:06] VITALS: BMI 23.8
--- NOTE | 2024-01-20 11:10 | DI.US.S_ITS ---
PROCEDURE: US THYROID INDICATIONS: Single thyroid nodule Left upper quadrant pain TECHNIQUE: Real-time scanning was performed of the thyroid gland, with image documentation. COMPARISON: [facility], US, US THYROID, 03/27/2022, 12:49. FINDINGS: Thyroid: Right lobe measures 3.5 x 1.5 x 0.9 cm. Left lobe measures 4.6 x 1.3 x 0.8 cm. Isthmus is 0.2 cm thick. Echotexture is heterogeneous. Nodule number: 1 Location: Right superior lobe Size: 1.0 cm. Unchanged. Composition: Mixed cystic and solid. Echogenicity: Isoechoic. Shape: wider than tall. Margins: Smooth Echogenic foci: Colloid within the cystic spaces Total points: 2 ACR TI-RADS category: Benign. IMPRESSION: Slightly heterogeneous thyroid echogenicity, commonly seen with thyroiditis. The previously described right thyroid lobe nodule has been down graded to a colloid cyst, which is benign. ACR TI-RADS definitions and recommendations: TI-RADS 1 (benign): 0 points. FNA not needed. TI-RADS 2 (not suspicious): 2 points. FNA not needed. TI-RADS 3 (mildly suspicious): 3 points. * FNA if 2.5 cm or larger, follow up if 1.5 cm or larger (at 1, 3, and 5 years). TI-RADS 4 (moderately suspicious): 4-6 points. * FNA if 1.5 cm or larger, follow up if 1 cm or larger (at 1, 2, 3, and 5 years). TI-RADS 5 (highly suspicious): 7 points or more. * FNA if 1 cm or larger, follow up if 0.5 cm or larger (every year for 5 years). Dictated by: Vincenzo Gonzalez M.D. on 01/20/2024 at 12:06 Approved by: Vincenzo Gonzalez M.D. on 01/20/2024 at 12:09
== END ==
LOC: US 11:09
PROVIDERS: PCP Family Medicine; Referring Provider Family Medicine; Visit Provider Family Medicine
DX: E04.1 Nontoxic single thyroid nodule (principal); R10.12 Left upper quadrant pain
CPT/HCPCS: 76536

== ENCOUNTER → 2024-08-03 10:54 | Outpatient (CLI) | payer MEDICARE, SELFPAY ==
[2019-05-19 17:06] VITALS: BMI 23.8
--- NOTE | 2024-08-03 10:55 | DI.CT.S_ITS ---
PROCEDURE: CT ABDOMEN PELVIS W CON INDICATIONS: LLQ PAIN TECHNIQUE: After the administration of intravenous contrast, axial sections acquired from the lung bases to the pubic symphysis. Coronal and sagittal reformats were performed. For radiation dose reduction, the following was used: automated exposure control, adjustment of mA and/or kV according to patient size. COMPARISON: [facility], CT, CT ABDOMEN PELVIS W CON, 04/13/2019, 12:40. FINDINGS: Image quality: Diagnostic. Lower Chest: Focal pleural thickening again seen at the right lung base, not significantly changed when compared to the CT from 04/13/2019. ABDOMEN: Liver: No solid mass. Gallbladder: Status post cholecystectomy. Biliary ducts: No biliary dilation. Pancreas: No ductal dilation. Spleen: Size is within normal limits. Adrenal Glands: No adrenal nodules. Kidneys and Ureters: No hydronephrosis. No solid mass. No complex renal cystic lesion which requires follow up. Small left peripelvic renal cysts. Stomach and Bowel: Multiple diverticula are seen in the sigmoid colon. No focal pericolonic inflammatory changes to suggest acute diverticulitis. Moderate stool is seen in the colon. Small bowel loops and stomach are unremarkable. Peritoneum: No abnormal intraperitoneal fluid. No free air. Ventral Wall: No significant ventral hernia. Abdominal Nodes: No retroperitoneal or mesenteric adenopathy by size criteria. Vessels: Aorta and inferior vena cava are normal in size. Moderate aortic atherosclerotic calcifications. Small peripherally calcified splenic artery aneurysm measuring 8 mm at the splenic hilum appears unchanged when compared to the CT from 2019. PELVIS: Pelvic Organs: Unremarkable. Bladder: No bladder wall thickening, accounting for underdistention. Pelvic Nodes: No enlarged lymph nodes. Miscellaneous: No inguinal hernias are seen. Bones: No aggressive osseous abnormality. Multilevel degenerative changes are seen in the spine. IMPRESSION: 1. No acute abnormality identified in the abdomen or pelvis. 2. Colonic diverticulosis without signs of acute diverticulitis. 3. Stable small splenic artery aneurysm. Approved by: Marcus Gomes M.D. on 08/03/2024 at 21:38
[2024-08-03 11:54] LABS: Estimated Glomerular Filt Rate > 60 mL/min (>60)
== END ==
PROVIDERS: Radiology Diagnostic Radiology; PCP Family Medicine; Referring Provider Family Medicine; Visit Provider Family Medicine
DX: K57.30 Diverticulosis of large intestine without perforation or abscess without bleeding (principal); I72.8 Aneurysm of other specified arteries; N20.0 Calculus of kidney; R10.32 Left lower quadrant pain; I70.0 Atherosclerosis of aorta; Z90.49 Acquired absence of other specified parts of digestive tract
CPT/HCPCS: 74177; 82565; Q9967